=== PATIENT | female | born 1940 | race Caucasian/White ===

== ENCOUNTER 2021-06-27 10:31 | Inpatient (IN) ==
[2021-06-27] MEDS ORDERED: SODIUM CHLORIDE 0.9% 1,000 ML IV STA (12:03)
[2021-06-27] MEDS ORDERED: PANTOPRAZOLE 40 MG VIAL IV STA (12:03)
[2021-06-27 12:18] LABS: Basophils # 0.8 10*3/uL (0.0-0.2); Basophils % 0.4 % (0.0-0.8); Eosinophils # 0.1 10*3/uL (0.0-0.87); Eosinophils % 0.1 % (0.00-10.9); Immature Granulocytes % 11.1 %; Immature Granulocytes Absolute 23.36 #; Lymphocytes # 15.2 10*3/uL (1.4-4.0); Lymphocytes % 7.2 % (21.3-54.2); Mean Corpuscular Volume 100.6 FL (87-102); Mean Platelet Volume 12.5 FL (9.6-12.0); Monocytes % 22.7 % (1.7-12.7); NRBC # 22.94 10*3/uL; Neutrophils % 58.5 % (38.7-73.9); Platelet Count 49 T/CUMM (130-400); Red Blood Count 1.58 MC/CUMM (3.8-5.5)
[2021-06-27 12:20] LABS: Hematocrit 15.9 VOL% (35.7-47.0); Hemoglobin 5.4 GM/DL (12.0-16.0); White Blood Count 210.4 T/CUMM (4-12)
[2021-06-27 12:27] LABS: INR 1.2; PT Patient Result 13.1 SECS (10.5-12.0); Partial Thromboplastin Time 21.7 SECS (23.8-32.1)
[2021-06-27 12:34] LABS: Albumin 3.2 G/DL (3.4-5.0); Calcium 8.9 MG/DL (8.5-10.1); Osmolality,Calculated 267.4 MOS/KG (273-304); Potassium 3.9 MMOL/L (3.5-5.1); Total Protein 7.5 G/DL (6.4-8.2)
[2021-06-27 13:18] LABS: Anisocytosis 1+; Band Neutrophils 5 % (0-10); Basophilic Stippling Few; Hypochromia 2+; Lymphocytes 15 % (20-55); Metamyelocytes 8 %; Myelocytes 4 %; Platelet Estimate Decreased; Polychromasia 1+; Promyelocytes 2 %; Target Cells Few
[2021-06-27 13:22] LABS: Nucleated Red Blood Cells 15 (0-5)
[2021-06-27] MEDS ORDERED: SODIUM CHLORIDE 0.9% 1,000 ML IV PRN (13:29)
[2021-06-27] MEDS ORDERED: DEXTROSE 50% 25 GM/50 ML SYRINGE IV PRN (14:11)
[2021-06-27] MEDS ORDERED: GLUCAGON 1 MG VIAL IM PRN (14:11)
[2021-06-27] MEDS ORDERED: ACETAMINOPHEN 325 MG TABLET PO PRN (14:15)
[2021-06-27] MEDS ORDERED: hydrALAZINE 20 MG/1 ML VIAL IV PRN (14:15)
[2021-06-27 15:11] LABS: Folate 7.97 NG/ML (5.38-24.0); Vitamin B12 > 2000 PG/ML (211-911)
[2021-06-27 15:54] LABS: Basophils # 0.6 10*3/uL (0.0-0.2); Basophils % 0.3 % (0.0-0.8); Eosinophils # 0.2 10*3/uL (0.0-0.87); Eosinophils % 0.1 % (0.00-10.9); Immature Granulocytes % 9.6 %; Immature Granulocytes Absolute 19.88 #; Lymphocytes # 15.2 10*3/uL (1.4-4.0); Lymphocytes % 7.3 % (21.3-54.2); Mean Corpuscular HGB Conc 33.8 GM/DL (32-36); Mean Corpuscular Volume 102.2 FL (87-102); Mean Platelet Volume 12.4 FL (9.6-12.0); Monocytes % 22.1 % (1.7-12.7); NRBC # 20.84 10*3/uL; Neutrophils % 60.6 % (38.7-73.9); Platelet Count 40 T/CUMM (130-400); Red Blood Count 1.39 MC/CUMM (3.8-5.5); Red Cell Distribution Width 16.4 % (9.3-17.3)
[2021-06-27 15:57] LABS: White Blood Count 207.7 T/CUMM (4-12)
[2021-06-27 16:54] LABS: Band Neutrophils 1 % (0-10); Lymphocytes 15 % (20-55); Metamyelocytes 27 %; Myelocytes 16 %; Nucleated Red Blood Cells 18 (0-5); Promyelocytes 2 %; Segmented Neutrophils 18 % (50-85); Total Cells Counted 100
[2021-06-27 16:57] LABS: Anisocytosis 1+; Hypochromia 1+; Platelet Estimate Decreased
[2021-06-27 16:58] LABS: Polychromasia 1+; Target Cells Slight
[2021-06-27 16:59] LABS: Segmented Neutrophils 35 % (50-85); Total Cells Counted 100
[2021-06-27 17:14] LABS: Basophils # 0.6 10*3/uL (0.0-0.2); Basophils % 0.3 % (0.0-0.8); Eosinophils # 0.2 10*3/uL (0.0-0.87); Eosinophils % 0.1 % (0.00-10.9); Immature Granulocytes Absolute 22.75 #; Lymphocytes # 17.6 10*3/uL (1.4-4.0); Lymphocytes % 8.5 % (21.3-54.2); Mean Corpuscular HGB Conc 33.6 GM/DL (32-36); Mean Corpuscular Volume 102.9 FL (87-102); Mean Platelet Volume 12.2 FL (9.6-12.0); Monocytes % 21.7 % (1.7-12.7); NRBC # 20.74 10*3/uL; Neutrophils % 58.4 % (38.7-73.9); Platelet Count 40 T/CUMM (130-400); Red Blood Count 1.39 MC/CUMM (3.8-5.5); Red Cell Distribution Width 15.9 % (9.3-17.3)
[2021-06-27 17:26] LABS: Hematocrit 14.3 VOL% (35.7-47.0); Hemoglobin 4.8 GM/DL (12.0-16.0); White Blood Count 206.3 T/CUMM (4-12)
[2021-06-27 17:34] LABS: Anisocytosis 1+; Eosinophils 1 % (0-10); Hypochromia 1+; Lymphocytes 15 % (20-55); Metamyelocytes 21 %; Myelocytes 11 %; Nucleated Red Blood Cells 10 (0-5); Platelet Estimate Decreased; Segmented Neutrophils 21 % (50-85); Target Cells Slight; Total Cells Counted 100
[2021-06-27 17:35] LABS: Polychromasia 1+
[2021-06-27 22:33] LABS: Sedimentation Rate-Westergren 125 MM/HR (0-30)
[2021-06-28 07:00] LABS: Basophils # 0.9 10*3/uL (0.0-0.2); Basophils % 0.6 % (0.0-0.8); Eosinophils # 0.1 10*3/uL (0.0-0.87); Eosinophils % 0.1 % (0.00-10.9); Hematocrit 22.7 VOL% (35.7-47.0); Immature Granulocytes Absolute 89.79 #; Lymphocytes # 10.6 10*3/uL (1.4-4.0); Lymphocytes % 7.3 % (21.3-54.2); Mean Corpuscular Volume 94.2 FL (87-102); Mean Platelet Volume 12.4 FL (9.6-12.0); Monocytes % 28.1 % (1.7-12.7); Neutrophils % 1.9 % (38.7-73.9); Red Cell Distribution Width 15.4 % (9.3-17.3)
[2021-06-28 07:03] LABS: White Blood Count 144.7 T/CUMM (4-12)
[2021-06-28 07:04] LABS: Platelet Count 26 T/CUMM (130-400); Red Blood Count 2.41 MC/CUMM (3.8-5.5)
[2021-06-28 07:05] LABS: Hemoglobin 7.5 GM/DL (12.0-16.0)
[2021-06-28 07:19] LABS: Band Neutrophils 5 % (0-10); Hypochromia Slight; Lymphocytes 39 % (20-55); Metamyelocytes 5 %; Myelocytes 2 %; Nucleated Red Blood Cells 22 (0-5); Platelet Estimate Decreased; Segmented Neutrophils 28 % (50-85); Total Cells Counted 100
[2021-06-28 07:20] LABS: Atypical Lymphocytes Moderate; Smudge Cells Few
[2021-06-28 07:25] LABS: Albumin 2.6 G/DL (3.4-5.0); Bilirubin,Total 1.7 MG/DL (0.20-1.00); Calcium 8.1 MG/DL (8.5-10.1); Osmolality,Calculated 275.7 MOS/KG (273-304); Potassium 3.6 MMOL/L (3.5-5.1); Risk Ratio 2.14; Thyroid Stimulating Hormone 2.7 uIU/ml (0.358-3.74); Total Protein 6.4 G/DL (6.4-8.2); VLDL Cholesterol 19.4 MG/DL
[2021-06-28] MEDS: SODIUM CHLORIDE 0.9% 1,000 ML IV SCH ×3 (07:35→18:20)
[2021-06-28 10:25] LABS: % Iron Saturation 75.2 % (18-50)
[2021-06-28 11:25] LABS: Hepatitis B Core IgM Quant 0.19 Index; Hepatitis B Surface Ag Quant < 0.10 Index; Hepatitis B Surface Ag Result Non-Reactive (NonReactive); Hepatitis C Virus Ab Quant < 0.02 Index; Hepatitis C Virus Ab Result Non-Reactive (NonReactive)
[2021-06-28] MEDS ORDERED: metroNIDAZOLE INJ 500 MG/100 ML PREMIX IV SCH (12:30)
[2021-06-28 14:53] LABS: Hematocrit 23.7 VOL% (35.7-47.0); Hemoglobin 7.8 GM/DL (12.0-16.0)
[2021-06-28] MEDS: CIPROFLOXACIN INJ 400 MG/200 ML PREMIX IV SCH (15:08)
[2021-06-28] MEDS: metroNIDAZOLE INJ 500 MG in PREMIX 1 EACH IV SCH ×2 (17:49→20:31)
[2021-06-28 23:06] LABS: Hematocrit 20.6 VOL% (35.7-47.0)
[2021-06-28 23:08] LABS: Hemoglobin 6.7 GM/DL (12.0-16.0)
[2021-06-29] MEDS: CIPROFLOXACIN INJ 400 MG/200 ML PREMIX IV SCH ×2 (00:37→12:08)
[2021-06-29 05:56] LABS: Hematocrit 20.4 VOL% (35.7-47.0)
[2021-06-29 06:00] LABS: Basophils # 0.6 10*3/uL (0.0-0.2); Basophils % 0.4 % (0.0-0.8); Eosinophils # 0.1 10*3/uL (0.0-0.87); Eosinophils % 0.1 % (0.00-10.9); Hematocrit 20.9 VOL% (35.7-47.0); Hemoglobin 6.7 GM/DL (12.0-16.0); Immature Granulocytes % 8.9 %; Immature Granulocytes Absolute 11.19 #; Lymphocytes % 15.8 % (21.3-54.2); Mean Corpuscular HGB Conc 32.1 GM/DL (32-36); Mean Platelet Volume 11.9 FL (9.6-12.0); Monocytes % 17.5 % (1.7-12.7); NRBC # 8.48 10*3/uL; Neutrophils % 57.3 % (38.7-73.9); Red Cell Distribution Width 15.9 % (9.3-17.3)
[2021-06-29 06:06] LABS: Hemoglobin 6.6 GM/DL (12.0-16.0)
[2021-06-29] MEDS: metroNIDAZOLE INJ 500 MG in PREMIX 1 EACH IV SCH ×3 (06:09→21:53)
[2021-06-29 06:29] LABS: Platelet Count 20 T/CUMM (130-400); White Blood Count 126.2 T/CUMM (4-12)
[2021-06-29 06:29] LABS: Albumin 2.3 G/DL (3.4-5.0); Calcium 7.8 MG/DL (8.5-10.1); Osmolality,Calculated 280.3 MOS/KG (273-304); Potassium 3.3 MMOL/L (3.5-5.1); Total Protein 5.7 G/DL (6.4-8.2)
[2021-06-29 07:05] LABS: Bilirubin,Urine Negative (Negative); Blood, Urine Negative (Negative); Glucose,Urine (UA) Negative (Negative); Ketones,Urine Negative (Negative); Nitrite,Urine Negative (Negative); Protein,Urine Negative; RBC,Urine 3 /HPF (0-4); Squamous Epithelial Cell,Urine Occasional /HPF (0-10); Urine Appearance CLEAR (Clear); Urine Color Yellow (Yellow); Urine Specific Gravity 1.006 (1.001-1.035)
[2021-06-29] MEDS ORDERED: POTASSIUM CHLORIDE 20 MEQ TABLET PO ONE (07:12)
[2021-06-29 07:26] LABS: Eosinophils 1 % (0-10); Lymphocytes 35 % (20-55); Metamyelocytes 8 %; Myelocytes 5 %; Nucleated Red Blood Cells 10 (0-5); Segmented Neutrophils 28 % (50-85); Total Cells Counted 100
[2021-06-29 07:32] LABS: Anisocytosis 1+; Hypochromia Slight; Microcytosis 1+; Platelet Estimate Decreased
[2021-06-29] MEDS ORDERED: SODIUM CHLORIDE 0.9% 1,000 ML IV PRN ×3 (08:21→16:04)
[2021-06-29] MEDS: SODIUM CHLORIDE 0.9% 1,000 ML IV SCH (08:23)
[2021-06-29 18:03] LABS: Hematocrit 23.9 VOL% (35.7-47.0); Hemoglobin 7.9 GM/DL (12.0-16.0)
[2021-06-30] MEDS: CIPROFLOXACIN INJ 400 MG/200 ML PREMIX IV SCH ×3 (01:11→22:40)
[2021-06-30 05:03] LABS: Basophils # 0.6 10*3/uL (0.0-0.2); Basophils % 0.4 % (0.0-0.8); Eosinophils # 0.2 10*3/uL (0.0-0.87); Eosinophils % 0.1 % (0.00-10.9); Hematocrit 23.6 VOL% (35.7-47.0); Hemoglobin 7.6 GM/DL (12.0-16.0); Immature Granulocytes % 10.3 %; Lymphocytes # 22.5 10*3/uL (1.4-4.0); Lymphocytes % 16.3 % (21.3-54.2); Mean Corpuscular HGB Conc 32.2 GM/DL (32-36); Mean Corpuscular Volume 94.8 FL (87-102); Mean Platelet Volume 10.2 FL (9.6-12.0); Monocytes % 18.4 % (1.7-12.7); NRBC # 6.15 10*3/uL; Neutrophils % 54.5 % (38.7-73.9); Red Blood Count 2.49 MC/CUMM (3.8-5.5); Red Cell Distribution Width 16.1 % (9.3-17.3)
[2021-06-30 05:19] LABS: Albumin 2.4 G/DL (3.4-5.0); Bilirubin,Total 0.9 MG/DL (0.20-1.00); Calcium 8.2 MG/DL (8.5-10.1); Osmolality,Calculated 278.3 MOS/KG (273-304); Potassium 3.5 MMOL/L (3.5-5.1)
[2021-06-30] MEDS: metroNIDAZOLE INJ 500 MG in PREMIX 1 EACH IV SCH ×3 (05:30→21:46)
[2021-06-30 05:49] LABS: Platelet Count 19 T/CUMM (130-400); White Blood Count 138.3 T/CUMM (4-12)
[2021-06-30 05:53] LABS: Band Neutrophils 11 % (0-10); Eosinophils 4 % (0-10); Lymphocytes 33 % (20-55); Metamyelocytes 3 %; Myelocytes 11 %; Nucleated Red Blood Cells 6 (0-5); Promyelocytes 1 %; Segmented Neutrophils 22 % (50-85); Total Cells Counted 100
[2021-06-30 05:54] LABS: Atypical Lymphocytes Few; Platelet Estimate Decreased
[2021-06-30 05:55] LABS: Hypochromia 1+; Microcytosis 1+
[2021-06-30 07:48] LABS: Hematocrit 14.2 VOL% (35.7-47.0); Hemoglobin 4.8 GM/DL (12.0-16.0)
[2021-06-30 12:10] LABS: Hematocrit 28.6 VOL% (35.7-47.0); Hemoglobin 9.4 GM/DL (12.0-16.0)
[2021-06-30] MEDS ORDERED: POLYETHYLENE GLYCOL POWDER 17 GM PACK PO SCH (21:00)
[2021-07-01] MEDS: metroNIDAZOLE INJ 500 MG in PREMIX 1 EACH IV SCH (04:49)
[2021-07-01 05:49] LABS: Basophils # 1.8 10*3/uL (0.0-0.2); Basophils % 1.3 % (0.0-0.8); Eosinophils # 0.1 10*3/uL (0.0-0.87); Eosinophils % 0.1 % (0.00-10.9); Hematocrit 28.5 VOL% (35.7-47.0); Hemoglobin 9.2 GM/DL (12.0-16.0); Immature Granulocytes % 8.4 %; Immature Granulocytes Absolute 11.42 #; Lymphocytes # 23.6 10*3/uL (1.4-4.0); Lymphocytes % 17.3 % (21.3-54.2); Mean Corpuscular HGB Conc 32.3 GM/DL (32-36); Mean Corpuscular Volume 94.1 FL (87-102); Mean Platelet Volume 10.7 FL (9.6-12.0); Monocytes % 17.5 % (1.7-12.7); NRBC # 4.04 10*3/uL; Neutrophils % 55.4 % (38.7-73.9); Platelet Count 52 T/CUMM (130-400); Red Blood Count 3.03 MC/CUMM (3.8-5.5); Red Cell Distribution Width 15.9 % (9.3-17.3)
[2021-07-01 06:05] LABS: Albumin 2.6 G/DL (3.4-5.0); Bilirubin,Total 0.8 MG/DL (0.20-1.00); Calcium 8.5 MG/DL (8.5-10.1); Osmolality,Calculated 279.3 MOS/KG (273-304); Potassium 3.4 MMOL/L (3.5-5.1); Total Protein 6.4 G/DL (6.4-8.2)
[2021-07-01 06:12] LABS: Atypical Lymphocytes Few; Band Neutrophils 10 % (0-10); Hypochromia 1+; Lymphocytes 39 % (20-55); Metamyelocytes 3 %; Microcytosis 1+; Myelocytes 10 %; Nucleated Red Blood Cells 1 (0-5); Platelet Estimate Decreased; Segmented Neutrophils 18 % (50-85); Total Cells Counted 100
[2021-07-01] MEDS ORDERED: POTASSIUM CHLORIDE 20 MEQ TABLET PO PRN (08:34)
[2021-07-01 12:29] VITALS: BP 110/50
[2021-07-01 14:31] LABS: Specimen Type EDTA WB
== END 2021-07-01 13:00 | disposition home or self-care (01) | DRG 841 ==
LOC: N.ED 10:31 → N.EDINP 14:11 → SUATTDRO 14:11 → N.TELEN 18:19
PROVIDERS: ADMIT Internal Medicine; ATTEND Emergency Medicine

== ENCOUNTER 2021-09-20 08:18 | Inpatient (IN) ==
[2021-09-20] MEDS ORDERED: ONDANSETRON 4 MG/2 ML VIAL IV STA (08:40)
[2021-09-20] MEDS ORDERED: SODIUM CHLORIDE 0.9% 1,000 ML IV STA (08:40)
[2021-09-20] MEDS ORDERED: HYDROmorphone 1 MG/1 ML SYRINGE IV STA (08:40)
[2021-09-20 09:03] LABS: Basophils % 0.6 % (0.0-0.8); Hematocrit 29.5 VOL% (35.7-47.0); Hemoglobin 9.9 GM/DL (12.0-16.0); Lymphocytes # 0.7 10*3/uL (1.4-4.0); Lymphocytes % 36.9 % (21.3-54.2); Mean Corpuscular HGB Conc 33.6 GM/DL (32-36); Mean Corpuscular Volume 87.5 FL (87-102); Mean Platelet Volume 9.9 FL (9.6-12.0); Monocytes # 0.3 10*3/uL (0.11-0.8); Monocytes % 15.3 % (1.7-12.7); NRBC # 0.03 10*3/uL; Neutrophils % 47.2 % (38.7-73.9); Platelet Count 123 T/CUMM (130-400); Red Blood Count 3.37 MC/CUMM (3.8-5.5); Red Cell Distribution Width 19.9 % (9.3-17.3); White Blood Count 1.8 T/CUMM (4-12)
[2021-09-20 09:25] LABS: Albumin 1.7 G/DL (3.4-5.0); Bilirubin,Total 1.6 MG/DL (0.20-1.00); Calcium 8.7 MG/DL (8.5-10.1); Osmolality,Calculated 260.1 MOS/KG (273-304); Potassium 3.4 MMOL/L (3.5-5.1); Total Protein 6.2 G/DL (6.4-8.2)
[2021-09-20 09:54] LABS: Atypical Lymphocytes Few; Hypochromia 1+; Lymphocytes 49 % (20-55); Microcytosis 1+; Nucleated Red Blood Cells 1 (0-5); Ovalocytes Slight; Total Cells Counted 100
[2021-09-20 10:04] LABS: Amorphous Crystals,Urine Occasional /HPF (Few); Bacteria,Urine Occasional /HPF (Few); Hyaline Casts,Urine 1 /LPF (0-3); RBC,Urine 1 /HPF (0-4); Squamous Epithelial Cell,Urine Occasional /HPF (0-10)
[2021-09-20 10:05] LABS: Glucose,Urine (UA) Negative (Negative); Protein,Urine 30 mg/dL (Negative); Urine Appearance Clear (Clear); Urine Color Yellow (Yellow)
[2021-09-20 10:06] LABS: Bilirubin,Urine Small mg/dL (Negative); Blood, Urine Trace mg/dL (Negative); Ketones,Urine Trace mg/dL (Negative); Nitrite,Urine Negative (Negative)
[2021-09-20] MEDS ORDERED: LEVOFLOXACIN INJ 500 MG/100 ML PREMIX IV STA (11:52)
[2021-09-20] MEDS: SODIUM CHLORIDE 0.9% 1,000 ML IV SCH ×2 (12:28→20:27)
[2021-09-20] MEDS: LEVOFLOXACIN INJ 500 MG/100 ML PREMIX IV SCH (12:29)
[2021-09-20] MEDS: metroNIDAZOLE INJ 500 MG/100 ML PREMIX IV SCH ×2 (13:35→20:27)
[2021-09-20] MEDS: HYDROmorphone 1 MG/1 ML SYRINGE IV PRN (16:51)
[2021-09-20] MEDS: ONDANSETRON 4 MG/2 ML VIAL IV PRN (16:52)
[2021-09-20] MEDS: DOCUSATE SODIUM 100 MG CAPSULE PO SCH (20:28)
[2021-09-21] MEDS: metroNIDAZOLE INJ 500 MG/100 ML PREMIX IV SCH ×3 (04:55→17:00)
[2021-09-21 05:03] LABS: Basophils % 0.6 % (0.0-0.8); Hematocrit 25.4 VOL% (35.7-47.0); Hemoglobin 8.6 GM/DL (12.0-16.0); Lymphocytes # 0.5 10*3/uL (1.4-4.0); Lymphocytes % 29.7 % (21.3-54.2); Mean Corpuscular HGB Conc 33.9 GM/DL (32-36); Mean Platelet Volume 10.2 FL (9.6-12.0); Monocytes # 0.5 10*3/uL (0.11-0.8); Monocytes % 27.4 % (1.7-12.7); NRBC # 0.02 10*3/uL; Neutrophils % 42.3 % (38.7-73.9); Platelet Count 102 T/CUMM (130-400); Red Blood Count 2.92 MC/CUMM (3.8-5.5); White Blood Count 1.8 T/CUMM (4-12)
[2021-09-21 05:23] LABS: Calcium 7.8 MG/DL (8.5-10.1); Osmolality,Calculated 263.7 MOS/KG (273-304); Potassium 3.4 MMOL/L (3.5-5.1)
[2021-09-21 07:15] LABS: Lymphocytes 46 % (20-55); Metamyelocytes 2 %; Nucleated Red Blood Cells 1 (0-5); Total Cells Counted 100
[2021-09-21 07:16] LABS: Atypical Lymphocytes Few
[2021-09-21 07:20] LABS: Microcytosis 1+
[2021-09-21 07:21] LABS: Hypochromia Slight; Ovalocytes Slight
[2021-09-21] MEDS: DOCUSATE SODIUM 100 MG CAPSULE PO SCH ×2 (09:35→20:21)
[2021-09-21] MEDS: PANTOPRAZOLE 40 MG TABLET PO SCH (09:35)
[2021-09-21] MEDS: POTASSIUM CHLORIDE 10 MEQ TABLET PO SCH (10:59)
[2021-09-21] MEDS: LEVOFLOXACIN INJ 500 MG/100 ML PREMIX IV SCH (13:00)
[2021-09-21] MEDS: ONDANSETRON 4 MG/2 ML VIAL IV PRN (14:48)
[2021-09-21] MEDS: HYDROmorphone 1 MG/1 ML SYRINGE IV PRN (16:53)
[2021-09-22] MEDS: metroNIDAZOLE INJ 500 MG/100 ML PREMIX IV SCH ×4 (00:08→17:44)
[2021-09-22] MEDS: HYDROmorphone 1 MG/1 ML SYRINGE IV PRN ×2 (00:08→13:48)
[2021-09-22] MEDS: SODIUM CHLORIDE 0.9% 1,000 ML IV SCH ×2 (00:41→17:44)
[2021-09-22 06:30] LABS: Basophils % 1.4 % (0.0-0.8); Eosinophils % 0.5 % (0.00-10.9); Hematocrit 26.8 VOL% (35.7-47.0); Lymphocytes # 0.7 10*3/uL (1.4-4.0); Lymphocytes % 32.4 % (21.3-54.2); Mean Corpuscular HGB Conc 33.6 GM/DL (32-36); Mean Corpuscular Volume 87.6 FL (87-102); Mean Platelet Volume 9.8 FL (9.6-12.0); Monocytes # 0.5 10*3/uL (0.11-0.8); Monocytes % 23.6 % (1.7-12.7); Neutrophils % 42.1 % (38.7-73.9); Platelet Count 107 T/CUMM (130-400); Red Blood Count 3.06 MC/CUMM (3.8-5.5); Red Cell Distribution Width 21.1 % (9.3-17.3); White Blood Count 2.2 T/CUMM (4-12)
[2021-09-22 06:58] LABS: Atypical Lymphocytes Few; Band Neutrophils 1 % (0-10); Hypochromia 1+; Lymphocytes 51 % (20-55); Microcytosis 1+; Platelet Estimate Decreased; Total Cells Counted 100
[2021-09-22 07:07] LABS: Albumin 1.4 G/DL (3.4-5.0); Bilirubin,Total 0.7 MG/DL (0.20-1.00); Calcium 7.7 MG/DL (8.5-10.1); Osmolality,Calculated 273.7 MOS/KG (273-304); Potassium 3.5 MMOL/L (3.5-5.1); Total Protein 5.1 G/DL (6.4-8.2)
[2021-09-22] MEDS: POTASSIUM CHLORIDE 10 MEQ TABLET PO SCH (08:42)
[2021-09-22] MEDS: DOCUSATE SODIUM 100 MG CAPSULE PO SCH ×2 (08:42→22:02)
[2021-09-22] MEDS: PANTOPRAZOLE 40 MG TABLET PO SCH (08:42)
[2021-09-22] MEDS: LEVOFLOXACIN INJ 500 MG/100 ML PREMIX IV SCH (13:42)
[2021-09-22] MEDS: ACETAMINOPHEN 325 MG TABLET PO PRN (22:02)
[2021-09-23] MEDS: metroNIDAZOLE INJ 500 MG/100 ML PREMIX IV SCH ×2 (00:12→05:38)
[2021-09-23] MEDS: SODIUM CHLORIDE 0.9% 1,000 ML IV SCH ×6 (04:00→23:20)
[2021-09-23 04:56] LABS: Basophils # 0.1 10*3/uL (0.0-0.2); Basophils % 2.4 % (0.0-0.8); Eosinophils % 0.5 % (0.00-10.9); Hematocrit 27.6 VOL% (35.7-47.0); Hemoglobin 9.2 GM/DL (12.0-16.0); Immature Granulocytes Absolute 0.46 #; Lymphocytes % 45.9 % (21.3-54.2); Mean Corpuscular HGB Conc 33.3 GM/DL (32-36); Mean Corpuscular Volume 87.9 FL (87-102); Mean Platelet Volume 9.4 FL (9.6-12.0); Monocytes # 0.3 10*3/uL (0.11-0.8); Monocytes % 14.8 % (1.7-12.7); Neutrophils % 14.4 % (38.7-73.9); Platelet Count 115 T/CUMM (130-400); Red Blood Count 3.14 MC/CUMM (3.8-5.5); White Blood Count 2.1 T/CUMM (4-12)
[2021-09-23 05:12] LABS: Calcium 7.6 MG/DL (8.5-10.1); Osmolality,Calculated 278.3 MOS/KG (273-304); Potassium 3.2 MMOL/L (3.5-5.1)
[2021-09-23 05:28] LABS: Atypical Lymphocytes Few; Band Neutrophils 1 % (0-10); Hypochromia 1+; Lymphocytes 69 % (20-55); Microcytosis 1+; Total Cells Counted 100
[2021-09-23] MEDS: PANTOPRAZOLE 40 MG TABLET PO SCH (08:50)
[2021-09-23] MEDS: POTASSIUM CHLORIDE 10 MEQ TABLET PO SCH (08:50)
[2021-09-23] MEDS: DOCUSATE SODIUM 100 MG CAPSULE PO SCH ×2 (08:50→21:40)
[2021-09-23] MEDS ORDERED: POLYETHYLENE GLYCOL POWDER 17 GM PACK PO PRN (08:54)
[2021-09-23] MEDS ORDERED: POTASSIUM CHLORIDE 20 MEQ TABLET PO ONE (09:00)
[2021-09-23] MEDS ORDERED: MAGNESIUM CHLORIDE 64 MG TABLET PO ONE (09:00)
[2021-09-23] MEDS: BACILLUS COAGULANS CAPLET PO SCH (10:11)
[2021-09-23] MEDS: LEVOFLOXACIN 500 MG TABLET PO SCH (10:11)
[2021-09-23] MEDS: metroNIDAZOLE 500 MG TABLET PO SCH ×2 (14:05→21:40)
[2021-09-23] MEDS: ACETAMINOPHEN 325 MG TABLET PO PRN (17:01)
[2021-09-24 05:29] LABS: Basophils # 0.1 10*3/uL (0.0-0.2); Basophils % 2.5 % (0.0-0.8); Eosinophils % 0.4 % (0.00-10.9); Hematocrit 28.3 VOL% (35.7-47.0); Hemoglobin 9.3 GM/DL (12.0-16.0); Lymphocytes % 40.3 % (21.3-54.2); Mean Corpuscular HGB Conc 32.9 GM/DL (32-36); Mean Corpuscular Volume 89.3 FL (87-102); Mean Platelet Volume 10.1 FL (9.6-12.0); Monocytes # 0.4 10*3/uL (0.11-0.8); Monocytes % 16.8 % (1.7-12.7); Platelet Count 91 T/CUMM (130-400); Red Blood Count 3.17 MC/CUMM (3.8-5.5); Red Cell Distribution Width 21.4 % (9.3-17.3); White Blood Count 2.4 T/CUMM (4-12)
[2021-09-24 05:40] LABS: Calcium 7.4 MG/DL (8.5-10.1); Osmolality,Calculated 280.1 MOS/KG (273-304); Potassium 3.9 MMOL/L (3.5-5.1)
[2021-09-24 05:56] LABS: Atypical Lymphocytes Few; Band Neutrophils 1 % (0-10); Burr Cells Slight; Hypochromia 1+; Lymphocytes 64 % (20-55); Microcytosis 1+; Nucleated Red Blood Cells 2 (0-5); Ovalocytes Slight; Platelet Estimate Decreased; Total Cells Counted 100
[2021-09-24] MEDS: BACILLUS COAGULANS CAPLET PO SCH (10:08)
[2021-09-24] MEDS: DOCUSATE SODIUM 100 MG CAPSULE PO SCH (10:08)
[2021-09-24] MEDS: POTASSIUM CHLORIDE 10 MEQ TABLET PO SCH (10:09)
[2021-09-24] MEDS: LEVOFLOXACIN 500 MG TABLET PO SCH (10:09)
[2021-09-24] MEDS: metroNIDAZOLE 500 MG TABLET PO SCH (10:09)
[2021-09-24] MEDS: PANTOPRAZOLE 40 MG TABLET PO SCH (10:09)
[2021-09-24] MEDS ORDERED: FUROSEMIDE 20 MG/2 ML VIAL IV ONE (11:00)
[2021-09-24] MEDS ORDERED: POTASSIUM CHLORIDE 20 MEQ TABLET PO ONE (11:00)
[2021-09-24 12:03] VITALS: BP 106/66
[2021-09-24] MEDS: ONDANSETRON 4 MG/2 ML VIAL IV PRN (12:14)
== END 2021-09-24 14:33 | disposition home or self-care (01) | DRG 392 ==
LOC: N.ED 08:18 → N.EDINP 11:55 → N.5E 17:41
PROVIDERS: ADMIT Family Medicine; ATTEND Family Medicine

== ENCOUNTER 2021-10-05 09:34 | Inpatient (IN) ==
[2021-10-05] MEDS ORDERED: ONDANSETRON 4 MG/2 ML VIAL IV STA (10:23)
[2021-10-05] MEDS ORDERED: SODIUM CHLORIDE 0.9% 500 ML IV STA (10:23)
[2021-10-05 10:33] LABS: Basophils # 0.2 10*3/uL (0.0-0.2); Basophils % 0.3 % (0.0-0.8); Hematocrit 28.3 VOL% (35.7-47.0); Lymphocytes # 4.1 10*3/uL (1.4-4.0); Lymphocytes % 5.2 % (21.3-54.2); Mean Corpuscular HGB Conc 31.8 GM/DL (32-36); Monocytes # 28.8 10*3/uL (0.11-0.8); Monocytes % 36.6 % (1.7-12.7); NRBC # 0.16 10*3/uL; Neutrophils % 57.9 % (38.7-73.9); Red Blood Count 3.18 MC/CUMM (3.8-5.5)
[2021-10-05 10:39] LABS: Platelet Count 39 T/CUMM (130-400); White Blood Count 78.7 T/CUMM (4-12)
[2021-10-05 10:52] LABS: Atypical Lymphocytes Few; Hypochromia Slight; Lymphocytes 68 % (20-55); Microcytosis 1+; Platelet Estimate Decreased; Smudge Cells Few; Total Cells Counted 100
[2021-10-05 11:10] LABS: Alanine Aminotransferase 14 U/L (13-56); Alkaline Phosphatase 134 U/L (45-117); Amylase 58 U/L (25-115); Aspartate Amino Transferase 87 U/L (0-37); Blood Urea Nitrogen 21 MG/DL (7-18); Calcium 8.1 MG/DL (8.5-10.1); Carbon Dioxide 27 MMOL/L (21-32); Chloride 92 MMOL/L (98-107); Estimated Glom Filtration Rate 24 ML/MIN; Glucose 77 MG/DL (74-106); Osmolality,Calculated 259.9 MOS/KG (273-304); Potassium 3.1 MMOL/L (3.5-5.1); Sodium 129 MMOL/L (136-145); Total Protein 6.4 G/DL (6.4-8.2)
[2021-10-05] MEDS ORDERED: POLYETHYLENE GLYCOL POWDER 17 GM PACK PO SCH (12:00)
[2021-10-05] MEDS ORDERED: cefTRIAXone 1,000 MG in SODIUM CHLORIDE 0.9% 100 ML IV SCH (12:00)
[2021-10-05] MEDS ORDERED: PROMETHAZINE INJ 12.5 MG in SODIUM CHLORIDE 0.9% 50 ML IV PRN (13:35)
[2021-10-05] MEDS: SODIUM CHLORIDE 0.9% 1,000 ML IV SCH (13:53)
[2021-10-05] MEDS: ACETAMINOPHEN 325 MG TABLET PO PRN (13:55)
[2021-10-05] MEDS ORDERED: POTASSIUM CHLORIDE RIDER 10 MEQ/100 ML PREMIX IV PRN (14:37)
[2021-10-05] MEDS ORDERED: MAGNESIUM SULF RIDER 2 GM/50 ML PREMIX IV PRN (14:37)
[2021-10-05] MEDS ORDERED: MAGNESIUM SULF RIDER 4 GM/100 ML PREMIX IV PRN (14:37)
[2021-10-05] MEDS ORDERED: POTASSIUM CHLORIDE RIDER 20 MEQ/100 ML PREMIX IV PRN (14:37)
[2021-10-05 15:19] LABS: Mucus,Urine Occasional /LPF (Occasional); Squamous Epithelial Cell,Urine Moderate /HPF (0-10); Urine Color Yellow (Yellow)
[2021-10-05 15:20] LABS: Bilirubin,Urine Large mg/dL (Negative); Blood, Urine Trace mg/dL (Negative); Glucose,Urine (UA) Negative (Negative); Ketones,Urine 15 mg/dL (Negative); Nitrite,Urine Negative (Negative); Protein,Urine >=300 mg/dL (Negative); Urine Appearance Cloudy (Clear); Urine Specific Gravity > 1.030 (1.001-1.035)
[2021-10-05] MEDS: POTASSIUM CHLORIDE 20 MEQ TABLET PO PRN ×4 (15:23→23:35)
[2021-10-05] MEDS ORDERED: HYDROXYUREA 500 MG CAPSULE PO ONE (15:30)
[2021-10-05] MEDS ORDERED: SODIUM CHLORIDE 0.9% 500 ML IV ONE (16:30)
[2021-10-05] MEDS: CEFEPIME 1,000 MG in SODIUM CHLORIDE 0.9% 100 ML IV SCH (20:55)
[2021-10-05] MEDS: DOCUSATE SODIUM 100 MG CAPSULE PO SCH (21:07)
[2021-10-06] MEDS: SODIUM CHLORIDE 0.9% 1,000 ML IV SCH ×3 (02:15→18:33)
[2021-10-06] MEDS: ACETAMINOPHEN 325 MG TABLET PO PRN (04:51)
[2021-10-06] MEDS: CEFEPIME 1,000 MG in SODIUM CHLORIDE 0.9% 100 ML IV SCH ×3 (04:54→22:23)
[2021-10-06 06:07] LABS: Basophils # 0.2 10*3/uL (0.0-0.2); Basophils % 0.4 % (0.0-0.8); Eosinophils % 0.1 % (0.00-10.9); Hemoglobin 7.4 GM/DL (12.0-16.0); Immature Granulocytes % 15.1 %; Immature Granulocytes Absolute 8.99 #; Lymphocytes # 2.9 10*3/uL (1.4-4.0); Lymphocytes % 4.9 % (21.3-54.2); Mean Corpuscular HGB Conc 32.2 GM/DL (32-36); Mean Corpuscular Volume 87.8 FL (87-102); Monocytes % 28.6 % (1.7-12.7); Neutrophils % 50.9 % (38.7-73.9); Red Blood Count 2.62 MC/CUMM (3.8-5.5); Red Cell Distribution Width 21.4 % (9.3-17.3)
[2021-10-06 06:12] LABS: Platelet Count 21 T/CUMM (130-400); White Blood Count 59.4 T/CUMM (4-12)
[2021-10-06 06:25] LABS: Calcium 7.2 MG/DL (8.5-10.1); Osmolality,Calculated 272.1 MOS/KG (273-304); Potassium 3.9 MMOL/L (3.5-5.1)
[2021-10-06 06:30] LABS: Atypical Lymphocytes 1+; Hypochromia 1+; Lymphocytes 46 % (20-55); Microcytosis 1+; Nucleated Red Blood Cells 1 (0-5); Platelet Estimate Decreased; Smudge Cells Few; Total Cells Counted 100
[2021-10-06] MEDS ORDERED: SODIUM CHLORIDE 0.9% 1,000 ML IV PRN (08:16)
[2021-10-06] MEDS ORDERED: HYDROXYUREA 500 MG CAPSULE PO SCH (09:00)
[2021-10-06] MEDS ORDERED: LOPERAMIDE 2 MG CAPSULE PO STA (09:30)
[2021-10-06] MEDS: HYDROXYUREA 500 MG CAPSULE PO SCH ×2 (09:45→10:55)
[2021-10-06] MEDS: allopurinoL 100 MG TABLET PO SCH (09:45)
[2021-10-06] MEDS: DOCUSATE SODIUM 100 MG CAPSULE PO SCH ×2 (09:46→22:23)
[2021-10-06] MEDS: PANTOPRAZOLE 40 MG VIAL IV SCH (09:46)
[2021-10-06] MEDS: POTASSIUM CHLORIDE 20 MEQ TABLET PO PRN (12:28)
[2021-10-06 19:35] LABS: Hematocrit 30.4 VOL% (35.7-47.0); Hemoglobin 10.2 GM/DL (12.0-16.0)
[2021-10-06] MEDS: CHOLESTYRAMINE 4 GM PACK PO SCH (22:23)
[2021-10-07] MEDS: CEFEPIME 1,000 MG in SODIUM CHLORIDE 0.9% 100 ML IV SCH ×3 (05:47→21:54)
[2021-10-07] MEDS: SODIUM CHLORIDE 0.9% 1,000 ML IV SCH ×2 (05:48→18:43)
[2021-10-07 08:06] LABS: Basophils % 0.1 % (0.0-0.8); Hematocrit 33.4 VOL% (35.7-47.0); Hemoglobin 10.9 GM/DL (12.0-16.0); Lymphocytes # 2.5 10*3/uL (1.4-4.0); Lymphocytes % 5.9 % (21.3-54.2); Mean Corpuscular HGB Conc 32.6 GM/DL (32-36); Monocytes # 22.5 10*3/uL (0.11-0.8); NRBC # 0.08 10*3/uL; Red Blood Count 3.84 MC/CUMM (3.8-5.5)
[2021-10-07 08:10] LABS: White Blood Count 41.7 T/CUMM (4-12)
[2021-10-07 08:11] LABS: Platelet Count 14 T/CUMM (130-400)
[2021-10-07 08:19] LABS: Calcium 7.4 MG/DL (8.5-10.1); Lymphocytes 48 % (20-55); Nucleated Red Blood Cells 1 (0-5); Osmolality,Calculated 265.7 MOS/KG (273-304); Potassium 4.3 MMOL/L (3.5-5.1); Total Cells Counted 100
[2021-10-07 08:20] LABS: Atypical Lymphocytes 1+; Hypochromia 1+; Microcytosis 1+; Smudge Cells Few
[2021-10-07 08:21] LABS: Acanthocytes Few; Platelet Estimate Decreased
[2021-10-07] MEDS: allopurinoL 100 MG TABLET PO SCH (09:01)
[2021-10-07] MEDS: CHOLESTYRAMINE 4 GM PACK PO SCH ×2 (09:01→21:54)
[2021-10-07] MEDS: DOCUSATE SODIUM 100 MG CAPSULE PO SCH ×2 (09:01→21:54)
[2021-10-07] MEDS: PANTOPRAZOLE 40 MG VIAL IV SCH (09:02)
[2021-10-07] MEDS: HYDROXYUREA 500 MG CAPSULE PO SCH (09:02)
[2021-10-07] MEDS ORDERED: SODIUM CHLORIDE 0.9% 1,000 ML IV PRN (15:21)
[2021-10-07] MEDS ORDERED: FUROSEMIDE 20 MG/2 ML VIAL IV ONE (16:57)
[2021-10-07] MEDS: ONDANSETRON 4 MG/2 ML VIAL IV PRN (18:36)
[2021-10-08] MEDS: CEFEPIME 1,000 MG in SODIUM CHLORIDE 0.9% 100 ML IV SCH ×3 (04:30→19:51)
[2021-10-08 05:24] LABS: Basophils # 0.2 10*3/uL (0.0-0.2); Basophils % 0.5 % (0.0-0.8); Eosinophils % 0.1 % (0.00-10.9); Hematocrit 28.6 VOL% (35.7-47.0); Hemoglobin 9.3 GM/DL (12.0-16.0); Lymphocytes % 6.6 % (21.3-54.2); Mean Corpuscular HGB Conc 32.5 GM/DL (32-36); Mean Corpuscular Volume 87.7 FL (87-102); Monocytes # 8.9 10*3/uL (0.11-0.8); Monocytes % 29.4 % (1.7-12.7); NRBC # 0.08 10*3/uL; Neutrophils % 63.4 % (38.7-73.9); Platelet Count 58 T/CUMM (130-400); Red Blood Count 3.26 MC/CUMM (3.8-5.5); Red Cell Distribution Width 20.1 % (9.3-17.3); White Blood Count 30.3 T/CUMM (4-12)
[2021-10-08 05:40] LABS: Albumin 1.4 G/DL (3.4-5.0); Bilirubin,Total 0.8 MG/DL (0.20-1.00); Calcium 7.4 MG/DL (8.5-10.1); Osmolality,Calculated 273.1 MOS/KG (273-304); Potassium 3.7 MMOL/L (3.5-5.1); Total Protein 5.2 G/DL (6.4-8.2)
[2021-10-08 05:48] LABS: Atypical Lymphocytes 1+; Eosinophils 1 % (0-10); Lymphocytes 52 % (20-55); Nucleated Red Blood Cells 1 (0-5); Platelet Estimate Decreased; Total Cells Counted 100
[2021-10-08 05:49] LABS: Acanthocytes Few; Hypochromia 1+; Microcytosis 1+; Smudge Cells Few
[2021-10-08] MEDS: DOCUSATE SODIUM 100 MG CAPSULE PO SCH ×2 (09:27→20:14)
[2021-10-08] MEDS: PANTOPRAZOLE 40 MG VIAL IV SCH (09:27)
[2021-10-08] MEDS: HYDROXYUREA 500 MG CAPSULE PO SCH (09:27)
[2021-10-08] MEDS: allopurinoL 100 MG TABLET PO SCH (09:28)
[2021-10-08] MEDS: CHOLESTYRAMINE 4 GM PACK PO SCH ×2 (09:28→22:50)
[2021-10-08] MEDS: SODIUM CHLORIDE 0.9% 1,000 ML IV SCH (22:51)
[2021-10-09] MEDS: CEFEPIME 1,000 MG in SODIUM CHLORIDE 0.9% 100 ML IV SCH ×2 (04:31→13:46)
[2021-10-09 06:07] LABS: Basophils # 0.1 10*3/uL (0.0-0.2); Basophils % 0.5 % (0.0-0.8); Hematocrit 28.8 VOL% (35.7-47.0); Hemoglobin 9.5 GM/DL (12.0-16.0); Lymphocytes # 1.9 10*3/uL (1.4-4.0); Lymphocytes % 7.2 % (21.3-54.2); Mean Corpuscular Volume 87.3 FL (87-102); Monocytes % 45.5 % (1.7-12.7); NRBC # 0.03 10*3/uL; Neutrophils % 46.8 % (38.7-73.9); Platelet Count 40 T/CUMM (130-400); Red Cell Distribution Width 20.9 % (9.3-17.3); White Blood Count 26.4 T/CUMM (4-12)
[2021-10-09 06:34] LABS: Albumin 1.3 G/DL (3.4-5.0); Calcium 7.8 MG/DL (8.5-10.1); Potassium 3.5 MMOL/L (3.5-5.1); Total Protein 4.9 G/DL (6.4-8.2)
[2021-10-09 06:37] LABS: Band Neutrophils 1 % (0-10); Lymphocytes 37 % (20-55); Nucleated Red Blood Cells 2 (0-5); Platelet Estimate Decreased; Total Cells Counted 100
[2021-10-09 06:38] LABS: Acanthocytes Few; Atypical Lymphocytes Few; Smudge Cells Few
[2021-10-09] MEDS ORDERED: ALBUTEROL/IPRATROPIUM 3 ML NEB RESP TX ONE (08:27)
[2021-10-09] MEDS: PANTOPRAZOLE 40 MG VIAL IV SCH (09:47)
[2021-10-09] MEDS: HYDROXYUREA 500 MG CAPSULE PO SCH (09:48)
[2021-10-09] MEDS: DOCUSATE SODIUM 100 MG CAPSULE PO SCH (09:48)
[2021-10-09] MEDS: allopurinoL 100 MG TABLET PO SCH (09:48)
[2021-10-09] MEDS: CHOLESTYRAMINE 4 GM PACK PO SCH (09:48)
[2021-10-09] MEDS: ONDANSETRON 4 MG/2 ML VIAL IV PRN (13:42)
[2021-10-09 16:24] VITALS: BP 128/54
== END 2021-10-09 18:33 | disposition hospice, home (50) | DRG 392 ==
LOC: N.ED 09:34 → N.5E 11:35
PROVIDERS: ADMIT Family Medicine; ATTEND Family Medicine